=== PATIENT | male | born 1990 | race African-American/Black ===

== ENCOUNTER 2021-01-06 15:46 | Emergency (ER) | payer SELFPAY ==
[~2021-01-06] VITALS: Ht 185.4 cm; Wt 96.2 kg
[2021-01-06 16:17] LABS: HEMATOCRIT 49.5 % (42.0-52.0); MEAN CELL VOLUME 94.1 fl (80.0-94.0); MEAN CORPUSCULAR HGB 31.2 pg (27.0-31.0); MEAN CORPUSCULAR HGB CONC 33.1 g/dl (33.0-37.0); MEAN PLATELET VOLUME 9.6 fl (9.6-12.3); PLATELET COUNT AUTOMATED 273 10*3/uL (130-400); RED BLOOD COUNT 5.26 10*6/uL (4.50-5.90); RED CELL DISTRI WIDTH 12.4 % (0-14.5); WHITE BLOOD COUNT 23.1 10*3/uL (4.8-10.8)
[2021-01-06 16:27] LABS: ACT PARTIAL THROMBO TIME 23.6 SECONDS (20.0-32.1)
[2021-01-06 16:32] LABS: ALKALINE PHOSPHATASE 75 U/L (45-117); BUN 21 mg/dl (7-24); CHLORIDE 107 mmol/L (98-107); CREATININE 1.48 mg/dL (0.70-1.30); POTASSIUM 4.3 mmol/L (3.5-5.1); SGOT/AST 615 IU/L (3-35); SGPT/ALT 337 U/L (12-78); SODIUM 139 mmol/L (136-145); TOTAL PROTEIN 8.2 gm/dL (6.4-8.2)
[2021-01-06 16:36] LABS: ARTERIAL BLOOD GAS PH 7.36 (7.35-7.45); ARTERIAL BLOOD GAS PO2 59.2 (80-90)
[2021-01-06 16:40] LABS: PLATELET SUFFICIENCY NORMAL (NORMAL); TOTAL CELLS COUNTED 100 #CELLS
[2021-01-06 16:42] LABS: ABG BASE EXCESS -6.5 mmol/L (-2.0-2.0)
[2021-01-06 17:05] LABS: BILIRUBIN Negative (Negative); BLOOD 3+ (Negative); CLARITY Turbid (Clear); GLUCOSE Negative (Negative); KETONE Trace (Negative); LEUKO ESTERASE Trace (Negative); NITRITE Negative (Negative); SPECIFIC GRAVITY 1.025 (1.001-1.030); UROBILINOGEN 0.2 E.U./dl (0.0-1.0)
[2021-01-06 17:13] LABS: CPK 22357 U/L (39-308)
[2021-01-06 17:14] LABS: URINE AMPHETAMINES < 1000 (1000ng/ml); URINE BARBITURATES < 200 (200ng/ml); URINE BENZODIAZEPINES < 200 (200ng/ml); URINE CANNABINOIDS (THC) > 50 (50ng/ml); URINE COCAINE > 300 (300ng/ml); URINE METHADONE < 300 (300ng/ml); URINE OPIATES < 300 (300ng/ml)
[2021-01-06 17:16] LABS: COLOR Orange (Yellow); MUCOUS 2+
[2021-01-06 17:19] LABS: URINE PHENCYCLIDINE < 25 (25ng/ml)
== END 2021-01-07 | disposition short-term general hospital (02) ==
LOC: ED 15:46
PROVIDERS: Emergency Medicine
DX: J96.00 Acute respiratory failure, unspecified whether with hypoxia or hypercapnia (principal); Z20.822 Contact with and (suspected) exposure to COVID-19; I63.9 Cerebral infarction, unspecified; M62.82 Rhabdomyolysis; F19.10 Other psychoactive substance abuse, uncomplicated; F14.129 Cocaine abuse with intoxication, unspecified; F17.200 Nicotine dependence, unspecified, uncomplicated; Z91.040 Latex allergy status